=== PATIENT | male | born 1980 | race Caucasian/White ===

== ENCOUNTER 2020-07-11 22:36 | Emergency (ER) | payer BC, SELFPAY ==
[2020-07-11 22:51] VITALS: BP 137/92; PULSE 102; RESP 22; TEMP 38.2; O2SAT 96; BMI 31.1
[2020-07-11 23:26] VITALS: BP 115/74; PULSE 96; RESP 20; TEMP 37.8; O2SAT 96
[2020-07-11 23:54] LABS: Basophils % 0.5 %; Hematocrit 44.8 % (42.0-52.0); Hemoglobin 15.7 g/dL (11.7-16.6); Lymphocytes # 0.9 10^3/uL (0.8-4.8); Lymphocytes % 21.2 %; Mean Corpuscular Hemoglobin 32.2 pg (28.0-34.0); Mean Platelet Volume 10.5 fL (7.4-10.4); Monocytes # 0.4 10^3/uL (0.2-0.9); Monocytes % 8.2 %; Neutrophils # 3.07 10^3/uL (1.8-7.7); Neutrophils % 69.9 %; Nucleated Red Blood Cells % 0 %; Platelet Count 158 10^3/cmm (130-400); Red Blood Count 4.87 10^6/uL (4.1-5.3); Red Cell Distribution Width 11.5 % (12.1-15.1); White Blood Count 4.4 10^3/uL (4.0-10.0)
[2020-07-12 00:11] LABS: Alanine Aminotransferase 45 U/L (0-41); Albumin Level 4.1 g/dL (3.5-5.2); Alkaline Phosphatase 67 IU/L (40-130); Anion Gap 16.8 (5-19); Aspartate Amino Transferase 27 U/L (0-40); Blood Urea Nitrogen 12 mg/dL (6-20); Calcium 8.7 mg/dL (8.5-10.5); Carbon Dioxide 20 mmol/L (22-29); Chloride 104 mmol/L (98-107); Creatinine Clr Calc Pharmacy 156.3476; Globulin 2.9 g/dL (1.3-4.6); Glomerular Filtration Rate 108.2 mL/min (90-130); Glucose 99 mg/dL (65-115); Osmolality Calculated 284 mOsm/kg (285-295); Potassium 3.8 mmol/L (3.5-5.1); Sodium 137 mmol/L (136-145); Total Bilirubin 0.4 mg/dL (0.15-1.2)
--- NOTE | 2020-07-12 00:14 | XRR_ITS ---
PROCEDURE INFORMATION: Exam: XR Chest, 1 View Exam date and time: 07/12/2020 12:21 AM Age: 40 years old Clinical indication: Fever and shortness of breath; Patient HX: SOB and fever. Exposure to covid; Additional info: Dyspnea TECHNIQUE: Imaging protocol: XR of the chest Views: 1 view. COMPARISON: No relevant prior studies available. FINDINGS: Lungs: There is subtle interstitial and hazy ground-glass opacity in the lung bases compatible with mild pneumonitis, atelectasis or edema. Pulmonary vascularity is within normal limits. No lobar consolidation. Pleural space: Unremarkable. No pleural effusion. No pneumothorax. Heart/Mediastinum: Unremarkable. No cardiomegaly. Bones/joints: No acute abnormality. XR/XR chest 1V portable [id number] IMPRESSION: There is subtle interstitial and hazy ground-glass opacity in the lung bases compatible with mild pneumonitis, atelectasis or edema. This appearance could reflect early COVID-19 pneumonia.
[2020-07-12 00:16] LABS: SARS Covid-2 Antigen Positive (Negative)
--- NOTE | 2020-07-12 00:21 | ED_ITS ---
HPI - COVID General: Chief Complaint: COVID symptoms Stated Complaint: covid symptoms Time Seen by Provider: 07/12/20 00:07 Source: patient Mode of arrival: ambulatory Limitations: no limitations Triage information: No fever, cough or shortness of breath . Exposure to COVID + person last 14 days History of Present Illness: HPI Narrative: Patient comes in today for complaints of of fever and shortness of breath for 1 week. Patient appears mildly unwell. Patient does have positive Covid exposure with mother being admitted to the hospital related to Covid illness. COVID 19 common symptoms: positive fever(s) COVID Results: SARS-CoV-2 Antigen (Rapid) Positive (Negative) H 07/11/20 23:44 07/11/20 Review of Systems General: Reports: 10 or more systems reviewed and unremarkable except in HPI and below Const: Reports: fever(s) Physical Exam Const: COMMON NORMALS: no acute distress and patient oriented x3 GENERAL APPEARANCE: cooperative HENMT: COMMON NORMALS: normocephalic and Normal external nose present HEAD & SCALP: normal to inspection and normocephalic NOSE: Normal external nose present MOUTH: Normal oral and palatal mucosa present Eye: GENERAL EYE: appearance normal, both eyes and all related structures Neck/C-Spine: COMMON NORMALS: full ROM Chest: COMMONS NORMALS: normal inspection of the chest Resp: COMMON NORMALS: normal respiratory effort EFFORT & INSPECTION: Yes able to speak in complete sentences Cardio: COMMON NORMALS: regular rate and regular rhythm RATE: regular rate RHYTHM: regular rhythm GI: COMMON NORMALS: non-tender Back/Pelvis: COMMON NORMALS: thoracic and lumbar spine normal to inspection Extremity: COMMON NORMALS: normal to inspection Neuro: COMMON NORMALS: patient oriented x3 and moves all extremities Psych: COMMON NORMALS: mental status grossly normal and cooperative Skin: COMMON NORMALS: no rashes or lesions noted GENERAL SKIN EXAM: no rashes or lesions noted Course Vital Signs: Vital signs: Vital Signs Temperature 100.1 F H 07/11/20 23:26 Pulse Rate 96 07/11/20 23:26 Respiratory Rate 20 H 07/11/20 23:26 Blood Pressure 115/74 07/11/20 23:26 Pulse Oximetry 96 07/11/20 23:26 MDM - COVID MDM Narrative: Medical decision making narrative: Patient presents with cough, fever, and malaise for 1 week. Patient comes in due to increased shortness of breath. On exam patient has decreased breath sounds in the lower lung. Skin is warm and dry. Vital signs no fever. Differential diagnosis includes COVID-19, pneumonia, bronchitis. Chest x-ray notes patchy infiltrates to bilateral lower lung polanco. COVID-19 was positive. Laboratory values were unremarkable. Reviewed exam with patient with recommendations for treatment of viral pneumonia. Patient reported understanding agreed to plan. Lab Data: Labs: Lab Results 07/11/20 07/11/20 07/11/20 Range/Units 23:40 23:40 23:44 WBC 4.4 (4.0-10.0) 10^3/ uL RBC 4.87 (4.1-5.3) 10^6/u L Hgb 15.7 (11.7-16.6) g/dL Hct 44.8 (42.0-52.0) % MCV 92.0 (80-94) fL MCH 32.2 (28.0-34.0) pg MCHC 35.0 (30.0-36.0) g/dL RDW 11.5 L (12.1-15.1) % Plt Count 158 (130-400) 10^3/c mm MPV 10.5 H (7.4-10.4) fL Neut % (Auto) 69.9 % Lymph % (Auto) 21.2 % [place] % (Auto) 8.2 % Eos % (Auto) 0.0 % Baso % (Auto) 0.5 % Neut # (Auto) 3.07 (1.8-7.7) 10^3/u L Lymph # (Auto) 0.9 (0.8-4.8) 10^3/u L [place] # (Auto) 0.4 (0.2-0.9) 10^3/u L Eos # (Auto) 0.0 (0.0-0.8) 10^3/u L Baso # (Auto) 0.0 (0.0-0.1) 10^3/u L Nucleated RBC % (a uto) 0 % Nucleated RBCs # 0.0 /100WBC Sodium 137 (136-145) mmol/L Potassium 3.8 (3.5-5.1) mmol/L Chloride 104 (98-107) mmol/L Carbon Dioxide 20 L (22-29) mmol/L Anion Gap 16.8 (5-19) BUN 12 (6-20) mg/dL Creatinine 0.8 (0.7-1.2) mg/dL GFR Calculation 108.2 (90-130) mL/min Glucose 99 (65-115) mg/dL Calculated Osmolal ity 284 L (285-295) mOsm/k g Calcium 8.7 (8.5-10.5) mg/dL Total Bilirubin 0.4 (0.15-1.2) mg/dL AST 27 (0-40) U/L ALT 45 H (0-41) U/L Alkaline Phosphata se 67 (40-130) IU/L Total Protein 7.0 (6.6-8.7) g/dL Albumin 4.1 (3.5-5.2) g/dL Globulin 2.9 (1.3-4.6) g/dL SARS-CoV-2 Ag (Rap id) Positive H (Negative) COVID Results: SARS-CoV-2 Antigen (Rapid) Positive (Negative) H 07/11/20 23:44 07/11/20 Discharge Plan Discharge Patient Disposition: Home Clinical Impression: Pneumonia due to COVID-19 virus Condition: Stable Discharge Orders: Discharge ED (Routine); Ordered 07/12/20 Ordered By: Neil Jorgensen Referrals: Nicolas Florian MD [Primary Care Provider] - Discharge Diet: Usual diet Discharge Activity: Increase activity as tolerated Patient Instructions: Viral Pneumonia (ED) Activity Restrictions/Additional Instructions: Drink plenty of fluids. Use acetaminophen or ibuprofen for pain and fever. Monitor pulse oxygenation. If pulse oxygen gets below 90% return to the emergency room for further treatment and evaluation. Follow-up with primary care as needed. Coding Level of Care Code ED Chief Administrative Officer for Trudi Fwd Exam Comprehensive
[2020-07-12 01:00] VITALS: O2SAT 97
[2020-07-12] MEDS: sodium chloride 0.9% 1,000 ML 999 ML IV (01:00)
[2020-07-12 02:26] VITALS: BP 139/77; PULSE 88; RESP 22; O2SAT 96
[2020-07-12 03:38] VITALS: BP 134/78; PULSE 78; RESP 18; O2SAT 98
== END 2020-07-12 03:41 | disposition home or self-care (01) ==
PROVIDERS: Emergency Medicine; Emergency Provider Nurse Practitioner Family; PCP Family Medicine
DX: U07.1 COVID-19 (principal); J12.89 Other viral pneumonia
CPT/HCPCS: 12345; 71045; 80053; 85025; 87426; 99282; 99283; J7030

== ENCOUNTER → 2022-04-30 11:08 | Outpatient (BNVA) | payer BC, SELFPAY | PROVIDERS: PCP Family Medicine; Visit Provider Family Medicine | DX: Z00.00 Encounter for general adult medical examination without abnormal findings (principal); Z51.81 Encounter for therapeutic drug level monitoring; Z13.220 Encounter for screening for lipoid disorders | CPT/HCPCS: 80053; 80061; 85025 ==

== ENCOUNTER 2022-08-23 09:19 | Emergency (ER) | payer BC, SELFPAY ==
[2022-08-23 09:26] VITALS: BP 170/91; PULSE 81; RESP 16; TEMP 36.4; O2SAT 97
--- NOTE | 2022-08-23 10:08 | XRR_ITS ---
PROCEDURE INFORMATION: Exam: XR Chest Exam date and time: 08/23/2022 10:11 AM Age: 42 years old Clinical indication: Angina pectoris; Patient HX: High heart rate, high blood pressure, no chest pain TECHNIQUE: Imaging protocol: Radiologic exam of the chest. Views: 1 view. COMPARISON: CR XR chest 1V portable [id number] 07/12/2020 12:18 AM FINDINGS: Lungs: No pulmonary vascular congestion, pulmonary edema or pneumonia. Pleural spaces: No pleural effusion or pneumothorax. Heart/Mediastinum: The cardiac silhouette is not enlarged. The mediastinal contours are normal. Bones/joints: No acute osseous abnormality. XR/XR chest 1V portable [id number] IMPRESSION: No acute finding.
--- NOTE | 2022-08-23 10:09 | W.ED.SOB ---
HPI - SOB/Dyspnea General: Chief Complaint: Shortness of Breath/Dyspnea Stated Complaint: SOB Time Seen by Provider: 08/23/22 09:20 Source: patient Mode of arrival: ambulatory Limitations: no limitations History of Present Illness: HPI Narrative: Patient is a 42-year-old male with a history of anxiety here for complaints of an episode of shortness of breath and elevated heart rate earlier today. Patient states he had dropped his kids off at school and had went grocery shopping when he began developing shortness of breath. He states he was also having some pain into his left arm. He states he checked his pulse and it was anywhere from 110-120. Patient states he just had a friend that was diagnosed with a heart attack and was concerned that he too could be having one thus prompted his ED evaluation. Upon arrival patient tells me that his symptoms have resolved. He arrives with a heart rate of 81. He is not currently complaining of shortness of breath. He did not have any dyspnea walking to his room. Patient never had any active chest pain. MD elicited complaint: shortness of breath Onset (ago): hour(s) Timing: now resolved Severity: mild Exacerbating factors: nothing Relieving factors: nothing Associated symptoms: Deny abdominal pain, chest congestion, chest pain, dizziness, extremity pain, fever(s), hemoptysis, lightheadedness, nausea, orthopnea, palpitations, syncope or vomiting Treatment prior to arrival: none Related Data: Home oxygen amount: none Review of Systems Const: Denies: fever(s), chills, body aches, fatigue or malaise Eyes: Denies: change in vision or blurry vision Card: Reports: other (elevated HR-resolved now ); Denies: chest pain, palpitations, irregular heart rhythm, edema, swelling of feet/ankles, lightheadedness, syncope, pre-syncope, dyspnea on exertion, orthopnea, leg pain with exertion or acrocyanosis Resp: Reports: dyspnea (resolved now); Denies: productive cough, non-productive cough, wheezing, pain on inspiration, hemoptysis or chest congestion GI: Denies: abdominal pain, nausea, vomiting, heartburn or diarrhea : Denies: difficulty urinating or dysuria Musc: Denies: neck pain, back pain, extremity pain, extremity swelling or joint pain Skin/Breast: Denies: rash Neuro: Denies: headache(s), numbness in extremities, weakness in extremities, sensory changes or dizziness PFSH ED PFSH: Social History Smoking and tobacco status: former smoker Alcohol intake: current Alcohol intake frequency: 3 or more drinks per day Alcohol type: beer Physical Exam Const: COMMON NORMALS: no acute distress, average body habitus, patient oriented x3, no limitations, healthy appearing, alert and well nourished GENERAL APPEARANCE: cooperative ORIENTATION/CONSCIOUSNESS: Yes awake, Yes oriented to person, Yes oriented to place and Yes oriented to time HENMT: COMMON NORMALS: normocephalic and atraumatic HEAD & SCALP: normal to inspection, normocephalic and atraumatic Neck/C-Spine: COMMON NORMALS: full ROM, no lymphadenopathy, supple and no meningeal signs Chest: COMMONS NORMALS: normal inspection of the chest and normal palpation of entire chest wall Resp: COMMON NORMALS: normal respiratory effort and clear to auscultation bilaterally AUSCULTATION: clear to auscultation bilaterally Cardio: COMMON NORMALS: regular rate and regular rhythm RATE: regular rate RHYTHM: regular rhythm GI: COMMON NORMALS: Normal to inspection, nondistended, normoactive bowel sounds present, Soft to palpation, non-tender, No hepatosplenomegaly present and no masses PALPATION: Yes Soft to palpation and Yes No hepatosplenomegaly present Extremity: COMMON NORMALS: normal to inspection, full ROM, capillary refill normal, no joint enlargement, no clubbing, cyanosis or edema, no calf tenderness and no pedal edema GENERAL: Yes normal exam except as noted Neuro: PRITI COMA SCALE: document GCS findings Priti coma scale eye opening: Spontaneous Priti coma scale verbal response: Orientated Priti coma scale motor response: Obey commands [place] coma scale total score: 15 COMMON NORMALS: patient oriented x3, moves all extremities, no focal motor deficits and no sensory deficits noted SENSORIUM/ORIENTATION: Yes alert, Yes oriented to person, Yes oriented to place and Yes oriented to time MENINGEAL SIGNS: Yes no meningeal signs Skin: COMMON NORMALS: no rashes or lesions noted GENERAL SKIN EXAM: no rashes or lesions noted Course Vital Signs: Vital signs: Vital Signs Temperature 97.5 F L 08/23/22 09:26 Pulse Rate 81 08/23/22 09:26 Respiratory Rate 16 08/23/22 09:26 Blood Pressure 170/91 08/23/22 09:26 Pulse Oximetry 97 08/23/22 09:26 MDM - SOB/Dyspnea Medical Decision Making Patient has been asymptomatic throughout his ED stay. His vital signs are stable. ED work-up consisting of CBC, CMP, baseline and 2-hour troponins as well as a D-dimer are all unremarkable. EKG showing no ischemic findings. EKG was reviewed by Dr. Leonardo. CXR is normal. Recommend follow-up with his primary care provider if symptoms persist. Return to ED precautions given. Lab Data 08/23/22 10:31 08/23/22 10:31 Labs/Radiology: Radiology Impressions Chest X-Ray 08/23/22 10:08 IMPRESSION: No acute finding. Laboratory Results WBC 5.8 10^3/uL (4.0-10.0) 08/23/22 10:31 RBC 4.94 10^6/uL (4.1-5.3) 08/23/22 10:31 Hgb 15.8 g/dL (11.7-16.6) 08/23/22 10:31 Hct 45.1 % (42.0-52.0) 08/23/22 10:31 MCV 91.3 fl (80-94) 08/23/22 10:31 MCH 32.0 pg (28.0-34.0) 08/23/22 10:31 MCHC 35.0 g/dL (30.0-36.0) 08/23/22 10:31 RDW 12.2 % (12.1-15.1) 08/23/22 10:31 Plt Count 234 10^3/cmm (130-400) 08/23/22 10:31 MPV 10.1 fL (7.4-10.4) 08/23/22 10:31 Neut % (Auto) 57.2 % 08/23/22 10:31 Lymph % (Auto) 29.2 % 08/23/22 10:31 [place] % (Auto) 8.6 % 08/23/22 10:31 Eos % (Auto) 3.3 % 08/23/22 10:31 Baso % (Auto) 1.4 % 08/23/22 10:31 Neut # (Auto) 3.34 10^3/uL (1.8-7.7) 08/23/22 10:31 Lymph # (Auto) 1.7 10^3/uL (0.8-4.8) 08/23/22 10:31 [place] # (Auto) 0.5 10^3/uL (0.2-0.9) 08/23/22 10:31 Eos # (Auto) 0.2 10^3/uL (0.0-0.8) 08/23/22 10:31 Baso # (Auto) 0.1 10^3/uL (0.0-0.1) 08/23/22 10:31 Nucleated RBC % (auto) 0 % 08/23/22 10:31 Nucleated RBCs # 0.0 /100WBC 08/23/22 10:31 D-Dimer 0.30 ug/mIFEU (0-0.59) 08/23/22 10:31 Sodium 140 mmol/L (136-145) 08/23/22 10:31 Potassium 4.2 mmol/L (3.5-5.1) 08/23/22 10:31 Chloride 106 mmol/L (98-107) 08/23/22 10:31 Carbon Dioxide 23 mmol/L (22-29) 08/23/22 10:31 Anion Gap 15.2 (5-19) 08/23/22 10:31 BUN 12 mg/dL (6-20) 08/23/22 10:31 Creatinine 0.6 mg/dL (0.7-1.2) L 08/23/22 10:31 GFR Calculation 149.2 mL/min (90-130) H 08/23/22 10:31 Glucose 97 mg/dL (65-115) 08/23/22 10:31 Calculated Osmolality 290 mOsm/kg (285-295) 08/23/22 10:31 Calcium 9.3 mg/dL (8.5-10.5) 08/23/22 10:31 Total Bilirubin 0.3 mg/dL (0.15-1.2) 08/23/22 10:31 AST 24 U/L (0-40) 08/23/22 10:31 ALT 42 U/L (0-41) H 08/23/22 10:31 Alkaline Phosphatase 72 U/L (40-130) 08/23/22 10:31 Troponin T Baseline 6 ng/L (0-15) 08/23/22 10:31 Troponin T 120 Minute 6.00 ng/L (0-15) 08/23/22 12:20 Delta Troponin T 0 ABS# (0-10) 08/23/22 12:20 Total Protein 6.4 g/dL (6.6-8.7) L 08/23/22 10:31 Albumin 4.3 g/dL (3.5-5.2) 08/23/22 10:31 Globulin 2.1 g/dL (1.3-4.6) 08/23/22 10:31 Discharge Plan Discharge Patient Disposition: Home Clinical Impression: Normal exam Condition: Stable Prescriptions: No Action sertraline 25 mg tablet 25 mg PO DAILY Qty: 90 2RF potassium gluconate 595 mg (99 mg) Tablet 595 mg PO DAILY Discharge Orders: Discharge ED (Routine); Ordered 08/23/22 Ordered By: Nabila Soto Referrals: Nicolas Florian MD [Primary Care Provider] - Coding Level of Care Code ED Varnish Thinner for Trudi Naqvi
[2022-08-23 10:43] LABS: Basophils # 0.1 10^3/uL (0.0-0.1); Basophils % 1.4 %; Eosinophils # 0.2 10^3/uL (0.0-0.8); Eosinophils % 3.3 %; Hematocrit 45.1 % (42.0-52.0); Hemoglobin 15.8 g/dL (11.7-16.6); Lymphocytes # 1.7 10^3/uL (0.8-4.8); Lymphocytes % 29.2 %; Mean Corpuscular Volume 91.3 fl (80-94); Mean Platelet Volume 10.1 fL (7.4-10.4); Monocytes # 0.5 10^3/uL (0.2-0.9); Monocytes % 8.6 %; Neutrophils # 3.34 10^3/uL (1.8-7.7); Neutrophils % 57.2 %; Nucleated Red Blood Cells % 0 %; Platelet Count 234 10^3/cmm (130-400); Red Blood Count 4.94 10^6/uL (4.1-5.3); Red Cell Distribution Width 12.2 % (12.1-15.1); White Blood Count 5.8 10^3/uL (4.0-10.0)
[2022-08-23 11:11] LABS: Alanine Aminotransferase 42 U/L (0-41); Albumin Level 4.3 g/dL (3.5-5.2); Alkaline Phosphatase 72 U/L (40-130); Anion Gap 15.2 (5-19); Aspartate Amino Transferase 24 U/L (0-40); Blood Urea Nitrogen 12 mg/dL (6-20); Calcium 9.3 mg/dL (8.5-10.5); Carbon Dioxide 23 mmol/L (22-29); Chloride 106 mmol/L (98-107); Globulin 2.1 g/dL (1.3-4.6); Glomerular Filtration Rate 149.2 mL/min (90-130); Glucose 97 mg/dL (65-115); Osmolality Calculated 290 mOsm/kg (285-295); Potassium 4.2 mmol/L (3.5-5.1); Sodium 140 mmol/L (136-145); Total Bilirubin 0.3 mg/dL (0.15-1.2); Total Protein 6.4 g/dL (6.6-8.7)
[2022-08-23 11:12] LABS: Troponin(5th) Baseline 6 ng/L (0-15)
--- NOTE | 2022-08-23 11:16 | ECG_ITS ---
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 Measurements Intervals [place] Rate: 65 P: 48 NE: 161 QRS: 48 QRSD: 105 T: 45 QT: 410 QTc: 428 Interpretive Statements SINUS RHYTHM WITH SINUS ARRHYTHMIA No previous ECG available for comparison Electronically Signed On 08-23-2022 11:20:16 MANAGER VEHICLE by Michael Rae M.D. [id number]
--- NOTE | 2022-08-23 12:19 | ECG_ITS ---
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 Measurements Intervals [place] Rate: 56 P: 18 UT: 141 QRS: 93 QRSD: 111 T: 75 QT: 415 QTc: 401 Interpretive Statements SINUS BRADYCARDIA POSSIBLE LEFT ATRIAL ENLARGEMENT [-0.1mV P-WAVE IN V1/V2] BORDERLINE RIGHT AXIS DEVIATION [QRS AXIS > 90] MODERATE INTRAVENTRICULAR CONDUCTION DELAY [110+ ms QRS DURATION] MINIMAL ST DEPRESSION [0.025+ mV ST DEPRESSION] Compared to ECG 08/23/2022 11:16:30 Intraventricular conduction delay now present ST (T wave) deviation now present Sinus rhythm no longer present Sinus arrhythmia no longer present Electronically Signed On 08-23-2022 14:39:11 WEIGHER PACKING by Talha Hawk M.D. [id number]
[2022-08-23 12:47] LABS: Troponin 5 2HR Delta 0 ABS# (0-10)
[2022-08-23 13:03] VITALS: PULSE 61; RESP 15; O2SAT 95
== END 2022-08-23 13:03 | disposition home or self-care (01) ==
PROVIDERS: Emergency Provider Physician Assistant; PCP Family Medicine
DX: Z03.89 Encounter for observation for other suspected diseases and conditions ruled out (principal); Z87.891 Personal history of nicotine dependence
CPT/HCPCS: 36415; 71045; 80053; 84484; 85025; 85378; 93005; 99285

== ENCOUNTER → 2023-05-18 11:47 | Outpatient (BNVA) | payer BC, SELFPAY | PROVIDERS: PCP Family Medicine; Visit Provider Family Medicine | DX: Z51.81 Encounter for therapeutic drug level monitoring (principal); Z13.220 Encounter for screening for lipoid disorders | CPT/HCPCS: 80053; 80061; 85025 ==

== ENCOUNTER → 2023-06-08 08:31 | Outpatient (BNVA) | payer BC, SELFPAY | PROVIDERS: PCP Family Medicine; Visit Provider Family Medicine | DX: R74.01 Elevation of levels of liver transaminase levels (principal) | CPT/HCPCS: 86803; 87340 ==

== ENCOUNTER → 2024-03-06 14:06 | Outpatient (BNVA) | payer MEDICAID, SELFPAY | PROVIDERS: PCP Family Medicine; Visit Provider Family Medicine | DX: Z00.00 Encounter for general adult medical examination without abnormal findings (principal); Z51.81 Encounter for therapeutic drug level monitoring; Z13.220 Encounter for screening for lipoid disorders | CPT/HCPCS: 80053; 80061; 85025 ==